=== PATIENT | male | born 2000 | race American Indian/Alaskan Native ===

== ENCOUNTER 2025-07-27 15:03 | Emergency (ER) | payer OTHER ==
[~2025-07-27] VITALS: Ht 170.2 cm; Wt 103.9 kg
[2025-07-27] MEDS ORDERED: ASPIRIN 81 MG CHEW PO ONE (15:30)
[2025-07-27 15:34] LABS: BASOPHILS 0.3 % (0.2-1.2); EOSINOPHILS 0 % (0.8-7.0); LYMPHOCYTES 12.0 % (21.8-53.1); MCH 30.2 PG (25.7-32.2); MCHC 34.4 g/dL (32.3-36.5); MCV 87.7 fL (79.0-92.2); MONOCYTES 6.7 % (5.3-12.2); NEUTROPHILS 80.7 % (34.0-67.9); RBC 5.87 M/uL (4.63-6.08)
[2025-07-27 16:13] LABS: ALT (SGPT) 20.0 U/L (14-59); AST (SGOT) 15.0 U/L (15-37); GLOMERULAR FILTRATION RATE,EST 109.0 mL/min (>60); PROTEIN, TOTAL 7.9 g/dL (6.4-8.2); UREA NITROGEN 11.0 mg/dL (7-18)
[2025-07-27 16:51] VITALS: BP 145/95
--- NOTE | 2025-07-28 12:07 | EKG ---
[facility] [address] [facility] [place], [place] [address] Signed Sinus tachycardia Otherwise normal ECG No previous ECGs available Confirmed by Veronica Black DO ([id number]) on 07/28/2025 12:07:42 PM Electronically Signed By: VERONICA BLACK DO 07/28/25 1207 PATIENT NAME: CHRIS ALCARAZ Electrocardiogram DATE OF : [birth year] PHYSICIAN: VERONICA BLACK DO REPORT #: [id number] REPORT IS CONFIDENTIAL AND NOT TO BE RELEASED WITHOUT AUTHORIZATION
== END 2025-07-27 16:52 | disposition home or self-care (01) ==
LOC: ED 15:03
PROVIDERS: Emergency Medicine
DX: R07.9 Chest pain, unspecified (principal); M54.50 Low back pain, unspecified; F17.200 Nicotine dependence, unspecified, uncomplicated
CPT/HCPCS: 36415; 71045; 80053; 83735; 84484; 85025; 93005; 93010; 99285-25; A9270